=== PATIENT | male | born 1940 | race Caucasian/White ===

== ENCOUNTER 2016-07-14 10:46 | Outpatient (CLI) | payer MEDICARE, BC | END 2016-07-14 10:47 | LOC: LABLEX 10:46 | PROVIDERS: ATTEND Family Medicine | DX: R82.90 Unspecified abnormal findings in urine (principal) | CPT/HCPCS: 87086 ==

== ENCOUNTER 2016-07-22 06:57 | Outpatient (CLI) | payer MEDICARE, BC ==
[2016-07-22 08:05] LABS: ALT (SGPT) 73 U/L (0-55); AST (SGOT) 46 U/L (5-34); Alkaline Phosphatase 73 U/L (40-150); Anion Gap 17 mmol/L (10-20); BUN (Urea Nitrogen) 26 mg/dL (8.4-25.7); Calc. Creatinine Clearance 0 mL/min (70-130); Calcium 9.8 mg/dL (7.8-10.44); Carbon Dioxide 23 mmol/L (23-31); Chloride 104 mmol/L (98-107); Estimated GFR-MDRD 45; Globulin 3.7 g/dL (2.4-3.5); LDL Cholesterol, Calculated 94 mg/dL; Protein, Total 8.2 g/dL (5.8-8.1)
[2016-07-22 08:06] LABS: Hemoglobin A1c 10.8 % (4.0-6.0)
== END 2016-07-22 06:58 | disposition home or self-care (01) ==
LOC: BURLAB 06:57
PROVIDERS: ATTEND Internal Medicine Cardiovascular Disease
DX: E78.2 Mixed hyperlipidemia (principal); E78.5 Hyperlipidemia, unspecified; R81 Glycosuria; R82.90 Unspecified abnormal findings in urine; R35.0 Frequency of micturition; E11.65 Type 2 diabetes mellitus with hyperglycemia; I10 Essential (primary) hypertension
CPT/HCPCS: 36415; 80053; 80061; 83036; 84443

== ENCOUNTER 2016-10-23 07:13 | Outpatient (CLI) | payer MEDICARE, BC ==
[2016-10-23 08:06] LABS: Hemoglobin A1c 6.4 % (4.0-6.0)
== END 2016-10-23 07:14 | disposition home or self-care (01) ==
LOC: BURLAB 07:13
PROVIDERS: ATTEND Urology
DX: E11.65 Type 2 diabetes mellitus with hyperglycemia (principal); N28.9 Disorder of kidney and ureter, unspecified; N40.1 Benign prostatic hyperplasia with lower urinary tract symptoms
CPT/HCPCS: 82565; 83036; 84153